=== PATIENT | female | born 1970 | race Caucasian/White ===

== ENCOUNTER 2018-05-05 13:40 | Emergency (ER) | payer SELFPAY ==
[~2018-05-05] VITALS: Ht 165.1 cm; Wt 75.0 kg
[~2018-05-05 13:40] MED LIST: DIAZ5 PO
[2018-05-05 13:51] VITALS: BP 156/99
[2018-05-05] MEDS ORDERED: OMEP20 PO (13:59)
== END 2018-05-05 15:40 | disposition left against medical advice (07) ==
LOC: EMS 13:41
DX: M54.2 Cervicalgia (principal); M54.5 Low back pain; W18.39XA Other fall on same level, initial encounter; Y93.89 Activity, other specified; Y92.89 Other specified places as the place of occurrence of the external cause; Y99.8 Other external cause status; Z53.21 Procedure and treatment not carried out due to patient leaving prior to being seen by health care provider

== ENCOUNTER 2018-05-05 21:47 | Emergency (ER) | payer SELFPAY ==
[~2018-05-05] VITALS: Ht 160 cm; Wt 68.2 kg
[~2018-05-05 21:47] MED LIST changes: +OMEP20 PO
[2018-05-05 21:51] VITALS: BP 150/91
== END 2018-05-06 00:34 | disposition left against medical advice (07) ==
LOC: EMS 21:48
DX: Z53.21 Procedure and treatment not carried out due to patient leaving prior to being seen by health care provider (principal)

== ENCOUNTER 2020-08-01 03:20 | Emergency (ER) | payer OTHER ==
[~2020-08-01] VITALS: Ht 157.5 cm; Wt 70.5 kg
[~2020-08-01 03:20] MED LIST changes: -DIAZ5 PO
[2020-08-01 03:23] VITALS: BP 159/94
[2020-08-01] MEDS ORDERED: KETOROLAC TROMETHAMINE 30 MG/ML VIAL IVP ONE (03:30)
[2020-08-01] MEDS ORDERED: ONDANSETRON HCL 4 MG/2 ML VIAL IVP ONE (03:30)
[2020-08-01] MEDS ORDERED: GABA-1181 PO (03:34)
[2020-08-01] MEDS ORDERED: BUPR75 PO (03:34)
[2020-08-01] MEDS ORDERED: BUPR-121 PO (03:34)
[2020-08-01] MEDS ORDERED: OMEP20 PO (03:34)
[2020-08-01] MEDS ORDERED: ARIP10TA8 PO (03:34)
== END 2020-08-01 05:21 | disposition left against medical advice (07) ==
LOC: EMS 03:20
DX: R10.13 Epigastric pain (principal); R07.89 Other chest pain; K21.9 Gastro-esophageal reflux disease without esophagitis; F41.9 Anxiety disorder, unspecified; F17.210 Nicotine dependence, cigarettes, uncomplicated; Z88.5 Allergy status to narcotic agent; Z79.899 Other long term (current) drug therapy
CPT/HCPCS: 93005; 71045-TC

== ENCOUNTER 2020-09-11 08:22 | Emergency (ER) | payer OTHER ==
[~2020-09-11] VITALS: Ht 160 cm; Wt 77.3 kg
[~2020-09-11 08:22] MED LIST changes: +ARIP10TA8 PO; +BUPR-121 PO; +BUPR75 PO; +GABA-1181 PO
[2020-09-11] MEDS ORDERED: KETOROLAC TROMETHAMINE 30 MG/ML VIAL IM ONE (09:15)
[2020-09-11 09:40] VITALS: BP 147/79
== END 2020-09-11 09:44 | disposition home or self-care (01) ==
LOC: EMS 08:29
DX: H00.12 Chalazion right lower eyelid (principal); K21.9 Gastro-esophageal reflux disease without esophagitis; F41.9 Anxiety disorder, unspecified; F17.210 Nicotine dependence, cigarettes, uncomplicated; Z88.5 Allergy status to narcotic agent; Z88.8 Allergy status to other drugs, medicaments and biological substances
CPT/HCPCS: 96372; 99283; J1885

== ENCOUNTER 2021-01-07 21:03 | Emergency (ER) | payer OTHER | END 2021-01-07 21:27 | disposition home or self-care (01) | LOC: EMS 21:08 | DX: K59.00 Constipation, unspecified (principal); Z53.21 Procedure and treatment not carried out due to patient leaving prior to being seen by health care provider ==